=== PATIENT | female | born 2000 | race Two or more races ===

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

== ENCOUNTER 2021-05-05 22:54 | Emergency (ER) | payer MEDICAID ==
[~2021-05-05] VITALS: Ht 149.9 cm; Wt 49.9 kg
[2021-05-06 00:38] LABS: Nucleated Red Blood Cells % 0.1 %
[2021-05-06 00:39] LABS: Basophils # (auto) 0 10 ^3/uL (0-0.2); Basophils % (auto) 0.4 % (0.0-2.0); Eosinophils # (auto) 0.1 10 ^3/uL (0-0.8); Eosinophils % (auto) 0.9 % (0.0-7.0); Hematocrit 40.1 % (36.0-46.0); Hemoglobin 13.1 g/dL (12.2-16.2); Lymphocytes # (auto) 1.4 10 ^3/uL (0.4-5.4); Lymphocytes % (auto) 16.9 % (10.0-50.0); Mean Corpuscular Hgb Conc. 32.7 g/dL (32.0-36.0); Mean Corpuscular Volume 79.4 fL (80.0-100.0); Monocytes # (auto) 0.4 10 ^3/uL (0-1.3); Monocytes % (auto) 5.4 % (0.0-12.0); Neutrophils # (auto) 6.1 10 ^3/uL (1.6-8.6); Neutrophils % (auto) 76.4 % (37.0-80.0); Red Blood Cells 5.05 10^6/uL (4.0-5.20); Red Cell Distribution Width 14.3 % (11.8-14.3)
[2021-05-06 00:42] VITALS: BP 101/56
[2021-05-06 00:47] LABS: Urine Bacteria FEW /hpf (None Seen); Urine Blood Negative /uL (Negative); Urine Mucus FEW (None Seen); Urine Specific Gravity 1.034 (1.001-1.035); Urine WBC 4 /hpf (0 - 5)
[2021-05-06 00:54] LABS: Albumin 3.9 g/dL (3.4-5.0); Calcium 8.9 mg/dL (8.5-10.1); Potassium 3.9 mmol/L (3.5-5.1)
[2021-05-06 01:01] LABS: Bilirubin, Total 1.4 mg/dL (0.2-1.0); Total Protein 7.5 g/dL (6.4-8.2)
[2021-05-06] MEDS ORDERED: ONDANSETRON ODT 4 MG TAB PO ONE (01:45)
== END 2021-05-06 02:10 | disposition home or self-care (01) ==
LOC: ER 22:56
DX: A08.4 Viral intestinal infection, unspecified (principal); R51.9 Headache, unspecified; R68.83 Chills (without fever)
CPT/HCPCS: 36415; 80053; 81001; 81025; 83690; 85025; 85049; 99283; Q0162